=== PATIENT | male | born 1985 | race African-American/Black ===

== ENCOUNTER 2019-12-15 20:16 | Inpatient (IN) | payer SELFPAY ==
[2019-12-15] MEDS ORDERED: Sodium Chloride 0.9% 10 ML Syringe FLUSH PRN (21:19)
[2019-12-15] MEDS ORDERED: Sodium Chloride 0.9% 1,000 ML IV ONE (21:19)
[2019-12-15] MEDS ORDERED: Metoclopramide 10 MG/2 ML SDV IVPUSH ONE (21:19)
[2019-12-15] MEDS: LORazepam 2 MG/ML SDV IVPUSH ONE ×2 (21:26→22:28)
--- NOTE | 2019-12-15 21:26 | EDM.PDOC ---
ED HPI GENERAL MEDICAL PROBLEM - General Chief Complaint: Drug or Alcohol Abuse Stated Complaint: [facility] Time Seen by Provider: 12/15/19 21:26 - History of Present Illness INITIAL COMMENTS - FREE TEXT/NARRATIVE: 34-year-old male presents the emergency room after having a seizure. Patient is a chronic alcoholic and is trying to decrease his alcohol intake. The patient was homeless and recently came here from [place].. His goal is to be near his kids and to quit drinking. His last drink was earlier today he had a shot this morning and a 24 ounce beer throughout the afternoon in an attempt to slow down. His drinking over the last few weeks has been fairly light for him. The patient hit the floor at his ex-'s house and she ran up there and he had a generalized tonic-clonic seizure that lasted approximately 5 minutes she laid him over on his side this did stop 911 was summoned he was completely out of it for about 10 minutes after this no loss of bowel or bladder control and then he slowly started to wake up. His past medical history is otherwise unremarkable. - Related Data Allergies Allergy/AdvReac Type Severity Reaction Status Date / Time No Known Allergies Allergy Verified 12/15/19 20:26 Home Meds: Home Meds . [No Known Home Meds] 12/15/19 [History] Past Medical History HEENT History: Reports: None Cardiovascular History: Reports: None Respiratory History: Reports: None Gastrointestinal History: Reports: None Genitourinary History: Reports: None Musculoskeletal History: Reports: None Neurological History: Reports: Seizure Psychiatric History: Reports: Addiction Endocrine/Metabolic History: Reports: None Hematologic History: Reports: None Immunologic History: Reports: None Oncologic (Cancer) History: Reports: None Dermatologic History: Reports: None - Infectious Disease History Infectious Disease History: Reports: None Social & Family History - Tobacco Use Smoking Status *Q: Current Every Day Smoker Years of Tobacco use: 14 Packs/Tins Daily: 0.5 - Caffeine Use Caffeine Use: Reports: Soda - Recreational Drug Use Recreational Drug Use: No ED ROS GENERAL - Review of Systems Review Of Systems: See Below Constitutional: Reports: No Symptoms HEENT: Reports: No Symptoms, Other (He did bite his tongue during the seizure) Respiratory: Reports: No Symptoms Cardiovascular: Reports: No Symptoms GI/Abdominal: Reports: Nausea. Denies: Abdominal Pain, Vomiting Musculoskeletal: Reports: No Symptoms Skin: Reports: No Symptoms Neurological: Reports: Headache, Seizure, Tremors Psychiatric: Reports: No Symptoms Hematologic/Lymphatic: Reports: No Symptoms Immunologic: Reports: No Symptoms ED EXAM, GENERAL - Physical Exam Exam: See Below Exam Limited By: No Limitations General Appearance: Alert, No Apparent Distress, Other (He was sleeping but woke up and answer questions appropriately) Ears: Normal External Exam, Normal Canal, Hearing Grossly Normal, Normal TMs Nose: Normal Inspection, Normal Mucosa, No Blood Throat/Mouth: Normal Inspection, Normal Lips, Normal Gums, Normal Oropharynx, Normal Voice, No Airway Compromise, Other (Bite mondragon on the tongue) Head: Atraumatic, Normocephalic Respiratory/Chest: No Respiratory Distress, Lungs Clear, Normal Breath Sounds Cardiovascular: Regular Rate, Rhythm, No Edema, No Murmur GI/Abdominal: Normal Bowel Sounds, Soft, Non-Tender Back Exam: Normal Inspection. No: CVA Tenderness (L), CVA Tenderness (R) Extremities: No Pedal Edema Neurological: Alert, Oriented Psychiatric: Normal Affect, Other (States in no uncertain terms he wants to quit drinking) Lymphatic: No Adenopathy Course - Vital Signs Last Recorded V/S: Last Vital Signs Temp 37.5 C 12/15/19 20:21 Pulse 108 H 12/15/19 20:21 Resp 16 12/15/19 20:21 BP 152/119 H 12/15/19 20:21 Pulse Ox 96 12/15/19 20:21 - Orders/Labs/Meds Orders: Active Orders 24 hr Category Date Time Status Oxygen Therapy [RC] PRN Care 12/15/19 23:00 Active Peripheral IV Care [RC] . DIRECTED Care 12/15/19 21:19 Active Up With Assistance [RC] ASDIRECTED Care 12/15/19 23:00 Active VTE/DVT Education [RC] PER UNIT ROUTINE Care 12/15/19 23:00 Active Vital Signs [RC] Q4H Care 12/15/19 23:00 Active Consult to Case Management/Feeder Associate [CONS] Cons 12/15/19 23:00 Active Routine Clear Liquid Diet [DIET] Diet 12/16/19 Breakfast Active Head wo Cont [CT] Stat Exams 12/15/19 22:31 Ordered CBC WITH AUTO DIFF [HEME] AM Lab 12/16/19 05:11 Ordered COMPREHENSIVE METABOLIC PN,CMP [CHEM] AM Lab 12/16/19 05:11 Ordered CORONAVIRUS COVID-19 JEREMI [MOLEC] Stat Lab 12/15/19 22:40 Ordered FOLIC ACID [CHEM] AM Lab 12/16/19 05:11 Ordered MAGNESIUM [CHEM] AM Lab 12/16/19 05:11 Ordered PHOSPHORUS [CHEM] AM Lab 12/16/19 05:11 Ordered VITAMIN B12 [CHEM] AM Lab 12/16/19 05:11 Ordered Folic Acid Med 12/16/19 09:00 Active 1 mg PO DAILY LORazepam [Ativan] Med 12/15/19 23:00 Active 1 - 3 mg IV Q30M PRN Magnesium Sulfate/Water [Magnesium Sulfate in Water Med 12/15/19 22:19 Active Premix] 2 gm Premix Bag 1 bag IV ONETIME Magnesium Sulfate/Water [Magnesium Sulfate in Water Med 12/15/19 23:05 Ordered Premix] 4 gm Premix Bag 1 bag IV ONETIME Ondansetron [Zofran] Med 12/15/19 23:00 Active 4 mg IV Q4H PRN Pantoprazole [ProTONIX] Med 12/16/19 06:00 Active 40 mg PO ACBREAKFAST Sodium Chloride 0.9% [Saline Flush] Med 12/15/19 21:19 Active 10 ml FLUSH ASDIRECTED PRN Thiamine [Vitamin B-1] Med 12/16/19 09:00 Active 100 mg IVPUSH DAILY chlordiazePOXIDE [Librium] Med 12/15/19 23:05 Ordered See Protocol PO Q1H PRN levETIRAcetam [Keppra] 1,000 mg Med 12/15/19 23:30 Ordered Sodium Chloride 0.9% [Normal Saline] 100 ml IV ONETIME Peripheral IV Insertion Adult [OM.PC] Routine Oth 12/15/19 21:19 Ordered Resuscitation Status Routine Resus Stat 12/15/19 23:00 Ordered Medication Orders Chlordiazepoxide HCl (Librium) 0 mg PO Q1H PRN; Protocol PRN Reason: Withdrawal Symptoms Folic Acid (Folic Acid) 1 mg PO DAILY RHODA Magnesium Sulfate 2 gm/ Premix 50 mls @ 25 mls/hr IV ONETIME ONE Stop: 12/16/19 00:18 Last Admin: 12/15/19 22:26 Dose: 25 mls/hr Documented by: HELEN Magnesium Sulfate 4 gm/ Premix 50 mls @ 12.5 mls/hr IV ONETIME ONE Stop: 12/16/19 03:04 Lorazepam (Ativan) 1 - 3 mg IV Q30M PRN; Protocol PRN Reason: Nausea/Vomiting Ondansetron HCl (Zofran) 4 mg IV Q4H PRN PRN Reason: Nausea/Vomiting Pantoprazole Sodium (Protonix) 40 mg PO ACBREAKFAST RHODA Sodium Chloride (Saline Flush) 10 ml FLUSH ASDIRECTED PRN PRN Reason: Keep Vein Open Last Admin: 12/15/19 21:26 Dose: 10 ml Documented by: HELEN Thiamine HCl (Vitamin B-1) 100 mg IVPUSH DAILY RHODA Labs: Laboratory Tests 12/15/19 12/15/19 12/15/19 Range/Units 20:23 20:23 22:44 WBC 8.60 (4.23-9.07) K/mm3 RBC 4.03 L (4.63-6.08) M/mm3 Hgb 13.5 L (13.7-17.5) gm/dl Hct 40.4 (40.1-51.0) % MCV 100.2 H (79.0-92.2) fl MCH 33.5 H (25.7-32.2) pg MCHC 33.4 (32.2-35.5) g/dl RDW Std Deviation 48.4 H (35.1-43.9) fL Plt Count 210 (163-337) K/mm3 MPV 10.6 (9.4-12.3) fl Neut % (Auto) 49.3 (34.0-67.9) % Lymph % (Auto) 32.9 (21.8-53.1) % [place] % (Auto) 16.4 H (5.3-12.2) % Eos % (Auto) 1.0 (0.8-7.0) Baso % (Auto) 0.2 (0.1-1.2) % Neut # (Auto) 4.23 (1.78-5.38) K/mm3 Lymph # (Auto) 2.83 (1.32-3.57) K/mm3 [place] # (Auto) 1.41 H (0.30-0.82) K/mm3 Eos # (Auto) 0.09 (0.04-0.54) K/mm3 Baso # (Auto) 0.02 (0.01-0.08) K/mm3 Manual Slide Review Abnormal smear Sodium 136 (136-145) mEq/L Potassium 3.0 L (3.5-5.1) mEq/L Chloride 96 L (98-107) mEq/L Carbon Dioxide 25 (21-32) mEq/L Anion Gap 18.0 H (5-15) BUN 4 L (7-18) mg/dL Creatinine 0.9 (0.7-1.3) mg/dL Est Cr Clr Drug Dosing 135.73 mL/min Estimated GFR (MDRD) > 60 (>60) mL/min BUN/Creatinine Ratio 4.4 L (14-18) Glucose 65 L (74-106) mg/dL Calcium 9.7 (8.5-10.1) mg/dL Magnesium 1.3 L (1.8-2.4) mg/dl Total Bilirubin 0.4 (0.2-1.0) mg/dL AST 31 (15-37) U/L ALT 31 (16-63) U/L Alkaline Phosphatase 98 (46-116) U/L Total Protein 8.4 H (6.4-8.2) g/dl Albumin 3.8 (3.4-5.0) g/dl Globulin 4.6 gm/dL Albumin/Globulin Ratio 0.8 L (1-2) Urine Color Yellow (Yellow) Urine Appearance Clear (Clear) Urine pH 7.5 (5.0-8.0) Ur Specific [place] 1.015 (1.005-1.030) Urine Protein Trace H (Negative) Urine Glucose (UA) Negative (Negative) Urine Ketones Negative (Negative) Urine Occult Blood Trace-intact H (Negative) Urine Nitrite Negative (Negative) Urine Bilirubin Negative (Negative) Urine Urobilinogen 1.0 (0.2-1.0) Ur Leukocyte Esterase Negative (Negative) Urine RBC 5-10 H (0-5) /hpf Urine WBC 0-5 (0-5) /hpf Ur Squamous Epith Cells 0-5 (0-5) /hpf Urine Bacteria Few (FEW) /hpf Urine Mucus Few (FEW) /hpf Urine Opiates Screen (FGDVLO=960) Ur Buprenorphine Scrn (CUTOFF=10) Ur Oxycodone Screen (AKE7TQ=414) Urine Methadone Screen (NND7AO=664) Ur Propoxyphene Screen (RUODXI=366) Ur Barbiturates Screen (SGNNLG=993) Ur Tricyclics Screen (ABTQFO=741) Ur Phencyclidine Scrn (CUTOFF=25) Ur Amphetamine Screen (LNKZHA=110) U Methamphetamines Scrn (UWQSIZ=122) U Benzodiazepines Scrn (YBRMEU=731) U Cocaine Metab Screen (QJBXID=231) U Marijuana (THC) Screen (CUTOFF=50) Ethyl Alcohol 0.01 (0.00) gm% 12/15/19 Range/Units 22:44 WBC (4.23-9.07) K/mm3 RBC (4.63-6.08) M/mm3 Hgb (13.7-17.5) gm/dl Hct (40.1-51.0) % MCV (79.0-92.2) fl MCH (25.7-32.2) pg MCHC (32.2-35.5) g/dl RDW Std Deviation (35.1-43.9) fL Plt Count (163-337) K/mm3 MPV (9.4-12.3) fl Neut % (Auto) (34.0-67.9) % Lymph % (Auto) (21.8-53.1) % [place] % (Auto) (5.3-12.2) % Eos % (Auto) (0.8-7.0) Baso % (Auto) (0.1-1.2) % Neut # (Auto) (1.78-5.38) K/mm3 Lymph # (Auto) (1.32-3.57) K/mm3 [place] # (Auto) (0.30-0.82) K/mm3 Eos # (Auto) (0.04-0.54) K/mm3 Baso # (Auto) (0.01-0.08) K/mm3 Manual Slide Review Sodium (136-145) mEq/L Potassium (3.5-5.1) mEq/L Chloride (98-107) mEq/L Carbon Dioxide (21-32) mEq/L Anion Gap (5-15) BUN (7-18) mg/dL Creatinine (0.7-1.3) mg/dL Est Cr Clr Drug Dosing mL/min Estimated GFR (MDRD) (>60) mL/min BUN/Creatinine Ratio (14-18) Glucose (74-106) mg/dL Calcium (8.5-10.1) mg/dL Magnesium (1.8-2.4) mg/dl Total Bilirubin (0.2-1.0) mg/dL AST (15-37) U/L ALT (16-63) U/L Alkaline Phosphatase (46-116) U/L Total Protein (6.4-8.2) g/dl Albumin (3.4-5.0) g/dl Globulin gm/dL Albumin/Globulin Ratio (1-2) Urine Color (Yellow) Urine Appearance (Clear) Urine pH (5.0-8.0) Ur Specific [place] (1.005-1.030) Urine Protein (Negative) Urine Glucose (UA) (Negative) Urine Ketones (Negative) Urine Occult Blood (Negative) Urine Nitrite (Negative) Urine Bilirubin (Negative) Urine Urobilinogen (0.2-1.0) Ur Leukocyte Esterase (Negative) Urine RBC (0-5) /hpf Urine WBC (0-5) /hpf Ur Squamous Epith Cells (0-5) /hpf Urine Bacteria (FEW) /hpf Urine Mucus (FEW) /hpf Urine Opiates Screen Negative (PRYVGK=952) Ur Buprenorphine Scrn Negative (CUTOFF=10) Ur Oxycodone Screen Negative (RGA3MP=243) Urine Methadone Screen Negative (ZLJ5PQ=634) Ur Propoxyphene Screen Negative (DOEDQH=443) Ur Barbiturates Screen Negative (RWUKQT=818) Ur Tricyclics Screen Negative (TIXNIQ=471) Ur Phencyclidine Scrn Negative (CUTOFF=25) Ur Amphetamine Screen Negative (AZJBWM=895) U Methamphetamines Scrn Negative (WAPJWR=783) U Benzodiazepines Scrn Negative (FPNAWE=469) U Cocaine Metab Screen Negative (UFPCXF=474) U Marijuana (THC) Screen Negative (CUTOFF=50) Ethyl Alcohol (0.00) gm% Meds: Medications Generic Name Dose Route Start Last Admin Trade Name Freq PRN Reason Stop Dose Admin Chlordiazepoxide HCl 0 mg 12/15/19 23:05 Librium PO Q1H PRN Withdrawal Symptoms Protocol Folic Acid 1 mg 12/16/19 09:00 Folic Acid PO DAILY RHODA Magnesium Sulfate 2 gm/ Premix 50 mls @ 25 mls/hr 08/11/20 22:19 12/15/19 22:26 IV 12/16/19 00:18 25 mls/hr ONETIME ONE Administration Magnesium Sulfate 4 gm/ Premix 50 mls @ 12.5 mls/hr 12/15/19 23:05 IV 12/16/19 03:04 ONETIME ONE Lorazepam 1 - 3 mg 12/15/19 23:00 Ativan IV Q30M PRN Nausea/Vomiting Protocol Ondansetron HCl 4 mg 12/15/19 23:00 Zofran IV Q4H PRN Nausea/Vomiting Pantoprazole Sodium 40 mg 12/16/19 06:00 Protonix PO ACBREAKFAST RHODA Sodium Chloride 10 ml 12/15/19 21:19 12/15/19 21:26 Saline Flush FLUSH 10 ml ASDIRECTED PRN Administration Keep Vein Open Thiamine HCl 100 mg 12/16/19 09:00 Vitamin B-1 IVPUSH DAILY RHODA Discontinued Medications Generic Name Dose Route Start Last Admin Trade Name Freq PRN Reason Stop Dose Admin Chlordiazepoxide HCl 50 mg 12/15/19 22:49 12/15/19 23:26 Librium PO 12/15/19 22:50 50 mg ONETIME ONE Administration Sodium Chloride 1,000 mls @ 999 mls/hr 12/15/19 21:19 12/15/19 21:25 Normal Saline IV 12/15/19 22:19 999 mls/hr ONETIME ONE Administration Thiamine HCl 100 mg/ Sodium 101 mls @ 202 mls/hr 12/15/19 22:43 12/15/19 23:28 Chloride IV 12/15/19 22:44 202 mls/hr ONETIME ONE Administration Lorazepam 1 mg 12/15/19 21:19 12/15/19 22:28 Ativan IVPUSH 12/15/19 21:20 Not Given ONETIME ONE Lorazepam 2 mg 12/15/19 22:27 12/15/19 21:19 Ativan IVPUSH 12/15/19 22:28 2 mg ONETIME ONE Administration Metoclopramide HCl 10 mg 12/15/19 21:19 12/15/19 21:26 Reglan IVPUSH 12/15/19 21:20 10 mg ONETIME ONE Administration Pantoprazole Sodium 40 mg 12/15/19 23:07 12/15/19 23:28 Protonix Iv IVPUSH 12/15/19 23:08 40 mg ONETIME ONE Administration Potassium Chloride 40 meq 12/15/19 22:31 12/15/19 22:44 Klor-Con M20 PO 12/15/19 22:32 40 meq ONETIME ONE Administration - Re-Assessments/Exams Free Text/Narrative Re-Assessment/Exam: 12/15/19 22:51 Patient will be checked for COVID and will obtain a head CT his potassium is low he will receive some oral potassium for now his magnesium is low he is receiving IV magnesium. Case discussed with Dr. Alfaro the patient will come in for detox. 12/15/19 23:31 Discussed the situation again with Dr. Alfaro, he would like for me to put an order in for Keppra this has been done. Departure - Departure Time of Disposition: 22:51 Disposition: Admitted As Inpatient 67 Clinical Impression: Alcohol withdrawal syndrome - Discharge Information Referrals: PCP,None [Primary Care Provider] - Sepsis Event Note (ED) - Evaluation Sepsis Screening Result: No Definite Risk - Focused Exam Vital Signs: Vital Signs Temp Pulse Resp BP Pulse Ox 12/15/19 20:21 37.5 C 108 H 16 152/119 H 96 - My Orders Last 24 Hours: My Active Orders 12/15/19 22:19 Magnesium Sulfate/Water [Magnesium Sulfate in Water Premix] 2 gm Premix Bag 1 bag IV ONETIME 12/15/19 22:31 Head wo Cont [CT] Stat 12/15/19 22:40 CORONAVIRUS COVID-19 JEREMI [MOLEC] Stat 12/15/19 23:30 levETIRAcetam [Keppra] 1,000 mg Sodium Chloride 0.9% [Normal Saline] 100 ml IV ONETIME - Assessment/Plan Last 24 Hours: My Active Orders 12/15/19 22:19 Magnesium Sulfate/Water [Magnesium Sulfate in Water Premix] 2 gm Premix Bag 1 bag IV ONETIME 12/15/19 22:31 Head wo Cont [CT] Stat 12/15/19 22:40 CORONAVIRUS COVID-19 JEREMI [MOLEC] Stat 12/15/19 23:30 levETIRAcetam [Keppra] 1,000 mg Sodium Chloride 0.9% [Normal Saline] 100 ml IV ONETIME
[2019-12-15] MEDS ORDERED: Magnesium Sulfate/Water 2 GM in Premix Bag 1 BAG IV ONE (22:19)
[2019-12-15] MEDS ORDERED: LORazepam 2 MG/ML SDV IVPUSH ONE (22:27)
[2019-12-15] MEDS ORDERED: Potassium Chloride 20 MEQ Tab.ER PO ONE (22:31)
[2019-12-15] MEDS ORDERED: Thiamine 100 MG in Sodium Chloride 0.9% 100 ML IV ONE (22:43)
[2019-12-15] MEDS ORDERED: chlordiazePOXIDE 25 MG Cap PO ONE (22:49)
[2019-12-15] MEDS ORDERED: LORazepam 2 MG/ML SDV IV PRN (23:00)
[2019-12-15] MEDS ORDERED: Ondansetron 4 MG/2 ML SDV IV PRN (23:00)
[2019-12-15] MEDS ORDERED: chlordiazePOXIDE 25 MG Cap PO PRN (23:05)
[2019-12-15] MEDS ORDERED: Pantoprazole 40 MG Vial IVPUSH ONE (23:07)
[2019-12-15] MEDS ORDERED: levETIRAcetam 1,000 MG in Sodium Chloride 0.9% 100 ML IV ONE (23:30)
--- NOTE | 2019-12-15 23:49 | PCM.HP.2 ---
H&P History of Present Illness - General Date of Service: 12/15/19 Admit Problem/Dx: Admission Diagnosis/Problem Admission Diagnosis/Problem Seizure - History of Present Illness Initial Comments - Free Text/Narative: 34-year-old male presents emergency department with chief complaint of seizure. Patient has a history of alcoholism and since september has had multiple seizures when he decreases his alcohol intake. He recently moved from [place] where he was homeless to be closer to his children and their mother. Patient has been drinking approximately 7 or 50 mL of vodka daily plus as much beer as he can get his hands on. Yesterday morning he did have 1 shot of vodka and a 24 ounce beer and then attempt to decrease his intake. Patient subsequently had a seizure that lasted for approximately 5 minutes and EMS was called. He was postictal for approximately 10 minutes but no loss of bowel or bladder control. In the emergency department patient had a CT scan of the head which showed nothing acute. He was found to have some hyponatremia with potassium of 3.0 and hypomagnesemia magnesium 1.3. Anion gap was 18. Blood alcohol was 0.01 g% and his urine drug screen was negative. He was given a total of 3 mg of Ativan and Librium 50 mg in the emergency department. Started on potassium chloride 40 mEq and Protonix. Because of his recurrent history of seizures we loaded him with 1 g of Keppra in the emergency department and then transferred him to the ICU. - Related Data Allergies/Adverse Reactions: Allergies Allergy/AdvReac Type Severity Reaction Status Date / Time No Known Allergies Allergy Verified 12/16/19 01:42 Home Medications: Home Meds . [No Known Home Meds] 12/15/19 [History] Past Medical History HEENT History: Reports: None Cardiovascular History: Reports: None Respiratory History: Reports: None Gastrointestinal History: Reports: None Genitourinary History: Reports: None Musculoskeletal History: Reports: None Neurological History: Reports: Seizure Psychiatric History: Reports: Addiction Endocrine/Metabolic History: Reports: None Hematologic History: Reports: None Immunologic History: Reports: None Oncologic (Cancer) History: Reports: None Dermatologic History: Reports: None - Infectious Disease History Infectious Disease History: Reports: None Social & Family History - Tobacco Use Smoking Status *Q: Current Every Day Smoker Years of Tobacco use: 14 Packs/Tins Daily: 0.5 - Caffeine Use Caffeine Use: Reports: Soda - Recreational Drug Use Recreational Drug Use: No H&P Review of Systems - Review of Systems: Review Of Systems: Comprehensive ROS is negative, except as noted in HPI. Exam - Exam Exam: See Below - Vital Signs Vital Signs: Last Vital Signs Temp 99.5 F 12/15/19 20:21 Pulse 108 H 12/15/19 20:21 Resp 16 12/15/19 20:21 BP 152/119 H 12/15/19 20:21 Pulse Ox 96 12/15/19 20:21 Weight: 88.451 kg - Exam General: Oriented, Sedated HEENT: Conjunctiva Clear, Hearing Intact, Mucosa Moist & [place] Neck: Supple, Trachea Midline, 2 Lungs: Clear to Auscultation, Normal Respiratory Effort Cardiovascular: Regular Rate, Regular Rhythm GI/Abdominal Exam: Normal Bowel Sounds, Soft, Non-Tender, No Organomegaly, No Distention, No Abnormal Bruit, No Mass Extremities: Normal Inspection, Normal Range of Motion, Non-Tender, No Pedal Edema, Normal Capillary Refill Skin: Warm Neurological: Cranial Nerves Intact Neuro Extensive - Mental Status: Slow Response to Commands Psychiatric: Withdrawal Symptoms - Patient Data Lab Results Last 24 hrs: Laboratory Results - last 24 hr 12/15/19 12/15/19 12/15/19 Range/Units 20:23 20:23 22:44 WBC 8.60 (4.23-9.07) K/mm3 RBC 4.03 L (4.63-6.08) M/mm3 Hgb 13.5 L (13.7-17.5) gm/dl Hct 40.4 (40.1-51.0) % MCV 100.2 H (79.0-92.2) fl MCH 33.5 H (25.7-32.2) pg MCHC 33.4 (32.2-35.5) g/dl RDW Std Deviation 48.4 H (35.1-43.9) fL Plt Count 210 (163-337) K/mm3 MPV 10.6 (9.4-12.3) fl Neut % (Auto) 49.3 (34.0-67.9) % Lymph % (Auto) 32.9 (21.8-53.1) % [place] % (Auto) 16.4 H (5.3-12.2) % Eos % (Auto) 1.0 (0.8-7.0) Baso % (Auto) 0.2 (0.1-1.2) % Neut # (Auto) 4.23 (1.78-5.38) K/mm3 Lymph # (Auto) 2.83 (1.32-3.57) K/mm3 [place] # (Auto) 1.41 H (0.30-0.82) K/mm3 Eos # (Auto) 0.09 (0.04-0.54) K/mm3 Baso # (Auto) 0.02 (0.01-0.08) K/mm3 Manual Slide Review Abnormal smear Sodium 136 (136-145) mEq/L Potassium 3.0 L (3.5-5.1) mEq/L Chloride 96 L (98-107) mEq/L Carbon Dioxide 25 (21-32) mEq/L Anion Gap 18.0 H (5-15) BUN 4 L (7-18) mg/dL Creatinine 0.9 (0.7-1.3) mg/dL Est Cr Clr Drug Dosing 135.73 mL/min Estimated GFR (MDRD) > 60 (>60) mL/min BUN/Creatinine Ratio 4.4 L (14-18) Glucose 65 L (74-106) mg/dL Calcium 9.7 (8.5-10.1) mg/dL Magnesium 1.3 L (1.8-2.4) mg/dl Total Bilirubin 0.4 (0.2-1.0) mg/dL AST 31 (15-37) U/L ALT 31 (16-63) U/L Alkaline Phosphatase 98 (46-116) U/L Total Protein 8.4 H (6.4-8.2) g/dl Albumin 3.8 (3.4-5.0) g/dl Globulin 4.6 gm/dL Albumin/Globulin Ratio 0.8 L (1-2) Urine Color Yellow (Yellow) Urine Appearance Clear (Clear) Urine pH 7.5 (5.0-8.0) Ur Specific [place] 1.015 (1.005-1.030) Urine Protein Trace H (Negative) Urine Glucose (UA) Negative (Negative) Urine Ketones Negative (Negative) Urine Occult Blood Trace-intact H (Negative) Urine Nitrite Negative (Negative) Urine Bilirubin Negative (Negative) Urine Urobilinogen 1.0 (0.2-1.0) Ur Leukocyte Esterase Negative (Negative) Urine RBC 5-10 H (0-5) /hpf Urine WBC 0-5 (0-5) /hpf Ur Squamous Epith Cells 0-5 (0-5) /hpf Urine Bacteria Few (FEW) /hpf Urine Mucus Few (FEW) /hpf Urine Opiates Screen (MHMQNH=712) Ur Buprenorphine Scrn (CUTOFF=10) Ur Oxycodone Screen (RPS7NG=303) Urine Methadone Screen (UUT1RS=468) Ur Propoxyphene Screen (UXOQDN=379) Ur Barbiturates Screen (DAUFIO=959) Ur Tricyclics Screen (PWALCS=331) Ur Phencyclidine Scrn (CUTOFF=25) Ur Amphetamine Screen (ZMLXWP=114) U Methamphetamines Scrn (IZTRHL=675) U Benzodiazepines Scrn (KSJNXQ=648) U Cocaine Metab Screen (BOTZWY=163) U Marijuana (THC) Screen (CUTOFF=50) Ethyl Alcohol 0.01 (0.00) gm% 12/15/19 Range/Units 22:44 WBC (4.23-9.07) K/mm3 RBC (4.63-6.08) M/mm3 Hgb (13.7-17.5) gm/dl Hct (40.1-51.0) % MCV (79.0-92.2) fl MCH (25.7-32.2) pg MCHC (32.2-35.5) g/dl RDW Std Deviation (35.1-43.9) fL Plt Count (163-337) K/mm3 MPV (9.4-12.3) fl Neut % (Auto) (34.0-67.9) % Lymph % (Auto) (21.8-53.1) % [place] % (Auto) (5.3-12.2) % Eos % (Auto) (0.8-7.0) Baso % (Auto) (0.1-1.2) % Neut # (Auto) (1.78-5.38) K/mm3 Lymph # (Auto) (1.32-3.57) K/mm3 [place] # (Auto) (0.30-0.82) K/mm3 Eos # (Auto) (0.04-0.54) K/mm3 Baso # (Auto) (0.01-0.08) K/mm3 Manual Slide Review Sodium (136-145) mEq/L Potassium (3.5-5.1) mEq/L Chloride (98-107) mEq/L Carbon Dioxide (21-32) mEq/L Anion Gap (5-15) BUN (7-18) mg/dL Creatinine (0.7-1.3) mg/dL Est Cr Clr Drug Dosing mL/min Estimated GFR (MDRD) (>60) mL/min BUN/Creatinine Ratio (14-18) Glucose (74-106) mg/dL Calcium (8.5-10.1) mg/dL Magnesium (1.8-2.4) mg/dl Total Bilirubin (0.2-1.0) mg/dL AST (15-37) U/L ALT (16-63) U/L Alkaline Phosphatase (46-116) U/L Total Protein (6.4-8.2) g/dl Albumin (3.4-5.0) g/dl Globulin gm/dL Albumin/Globulin Ratio (1-2) Urine Color (Yellow) Urine Appearance (Clear) Urine pH (5.0-8.0) Ur Specific [place] (1.005-1.030) Urine Protein (Negative) Urine Glucose (UA) (Negative) Urine Ketones (Negative) Urine Occult Blood (Negative) Urine Nitrite (Negative) Urine Bilirubin (Negative) Urine Urobilinogen (0.2-1.0) Ur Leukocyte Esterase (Negative) Urine RBC (0-5) /hpf Urine WBC (0-5) /hpf Ur Squamous Epith Cells (0-5) /hpf Urine Bacteria (FEW) /hpf Urine Mucus (FEW) /hpf Urine Opiates Screen Negative (BXCDKI=730) Ur Buprenorphine Scrn Negative (CUTOFF=10) Ur Oxycodone Screen Negative (PIY7OI=216) Urine Methadone Screen Negative (AFD0FZ=707) Ur Propoxyphene Screen Negative (NNRIRV=038) Ur Barbiturates Screen Negative (TPIJZB=398) Ur Tricyclics Screen Negative (SWTQVX=624) Ur Phencyclidine Scrn Negative (CUTOFF=25) Ur Amphetamine Screen Negative (HZTVEQ=893) U Methamphetamines Scrn Negative (XVLMQJ=417) U Benzodiazepines Scrn Negative (RFYOIE=061) U Cocaine Metab Screen Negative (FZBJNK=705) U Marijuana (THC) Screen Negative (CUTOFF=50) Ethyl Alcohol (0.00) gm% Result Diagrams: 12/16/19 06:19 12/16/19 06:19 Sepsis Event Note - Evaluation Sepsis Screening Result: No Definite Risk - Focused Exam Vital Signs: Vital Signs Temp Pulse Resp BP Pulse Ox 12/15/19 20:21 99.5 F 108 H 16 152/119 H 96 - Problem List (1) Hypokalemia SNOMED Code(s): 06862897 ICD Code: E87.6 - HYPOKALEMIA Status: Acute Current Visit: Yes (2) Hypomagnesemia SNOMED Code(s): 604962735 ICD Code: E83.42 - HYPOMAGNESEMIA Status: Acute Current Visit: Yes (3) Alcohol withdrawal seizure SNOMED Code(s): 383710785 ICD Code: F10.239 - ALCOHOL DEPENDENCE WITH WITHDRAWAL, UNSPECIFIED; R56.9 - UNSPECIFIED CONVULSIONS Status: Acute Current Visit: Yes (4) Alcohol withdrawal syndrome SNOMED Code(s): 484775999 ICD Code: F10.239 - ALCOHOL DEPENDENCE WITH WITHDRAWAL, UNSPECIFIED Status: Acute Current Visit: Yes Problem List Initiated/Reviewed/Updated: Yes Orders Last 24hrs: Active Orders 24 hr Category Date Time Status Admission Status [Patient Status] [ADT] Routine ADT 12/15/19 23:44 Active CIWAA Assessment [RC] ASDIRECTED Care 12/15/19 23:43 Active Oxygen Therapy [RC] PRN Care 12/15/19 23:00 Active Peripheral IV Care [RC] . DIRECTED Care 12/15/19 21:19 Active Up With Assistance [RC] ASDIRECTED Care 12/15/19 23:00 Active VTE/DVT Education [RC] PER UNIT ROUTINE Care 12/15/19 23:00 Active Vital Signs [RC] Q4H Care 12/15/19 23:00 Active Consult to Case Management/Computer Systems Support Specialist [CONS] Cons 12/15/19 23:00 Active Routine Clear Liquid Diet [DIET] Diet 12/16/19 Breakfast Active Head wo Cont [CT] Stat Exams 12/15/19 22:31 Ordered CBC WITH AUTO DIFF [HEME] AM Lab 12/16/19 05:11 Ordered COMPREHENSIVE METABOLIC PN,CMP [CHEM] AM Lab 12/16/19 05:11 Ordered CORONAVIRUS COVID-19 JEREMI [MOLEC] Stat Lab 12/15/19 22:40 Ordered CREATINE KINASE,CK [CHEM] AM Lab 12/16/19 05:11 Ordered FOLIC ACID [CHEM] AM Lab 12/16/19 05:11 Ordered MAGNESIUM [CHEM] AM Lab 12/16/19 05:11 Ordered PHOSPHORUS [CHEM] AM Lab 12/16/19 05:11 Ordered VITAMIN B12 [CHEM] AM Lab 12/16/19 05:11 Ordered Folic Acid Med 12/16/19 09:00 Active 1 mg PO DAILY LORazepam [Ativan] Med 12/15/19 23:00 Active 1 - 3 mg IV Q30M PRN Magnesium Sulfate/Water [Magnesium Sulfate in Water Med 12/15/19 22:19 Active Premix] 2 gm Premix Bag 1 bag IV ONETIME Magnesium Sulfate/Water [Magnesium Sulfate in Water Med 12/15/19 23:05 Ordered Premix] 4 gm Premix Bag 1 bag IV ONETIME Ondansetron [Zofran] Med 12/15/19 23:00 Active 4 mg IV Q4H PRN Pantoprazole [ProTONIX] Med 12/16/19 06:00 Active 40 mg PO ACBREAKFAST Sodium Chloride 0.9% [Saline Flush] Med 12/15/19 21:19 Active 10 ml FLUSH ASDIRECTED PRN Thiamine [Vitamin B-1] Med 12/16/19 09:00 Active 100 mg IVPUSH DAILY chlordiazePOXIDE [Librium] Med 12/16/19 03:00 Active See Protocol PO Q1H PRN Peripheral IV Insertion Adult [OM.PC] Routine Oth 12/15/19 21:19 Ordered Resuscitation Status Routine Resus Stat 12/15/19 23:00 Ordered Medication Orders Chlordiazepoxide HCl (Librium) 0 mg PO Q1H PRN; Protocol PRN Reason: Withdrawal Symptoms Folic Acid (Folic Acid) 1 mg PO DAILY [facility] Magnesium Sulfate 2 gm/ Premix 50 mls @ 25 mls/hr IV ONETIME ONE Stop: 12/16/19 00:18 Last Admin: 12/15/19 22:26 Dose: 25 mls/hr Documented by: HELEN Magnesium Sulfate 4 gm/ Premix 50 mls @ 12.5 mls/hr IV ONETIME ONE Stop: 12/16/19 03:04 Lorazepam (Ativan) 1 - 3 mg IV Q30M PRN; Protocol PRN Reason: Nausea/Vomiting Ondansetron HCl (Zofran) 4 mg IV Q4H PRN PRN Reason: Nausea/Vomiting Pantoprazole Sodium (Protonix) 40 mg PO ACBREAKFAST [facility] Sodium Chloride (Saline Flush) 10 ml FLUSH ASDIRECTED PRN PRN Reason: Keep Vein Open Last Admin: 12/15/19 21:26 Dose: 10 ml Documented by: HELEN Thiamine HCl (Vitamin B-1) 100 mg IVPUSH DAILY [facility] Assessment/Plan Comment:: Assessment * Alcohol withdrawal syndrome with history of alcohol withdrawal seizures * Patient develops seizures with just lowering of his alcohol intake increasing his risk for further seizures * 5-minute seizure prior to presentation to the emergency department * Drinks 750 mL of vodka and several beers daily * Thiamine 100 mg given IV in the emergency department * Keppra 1 g IV given in emergency department * Hypokalemia and hypomagnesemia * Potassium 3.0 * Magnesium 1.3 * Potassium 40 mEq given in the emergency department * Magnesium 6 g started in emergency department * Likely secondary to poor oral intake * Elevated anion gap * Anion gap 18 * Likely secondary to hypovolemia and alcoholism * Fluid bolus given in the emergency department Plan * Admit to ICU for close monitoring secondary to history of withdrawal seizures * Seizure precautions * Librium protocol * Follow CIWAA scores * Ativan for elevated CIWA scores PRN * Continue Keppra 500 mg twice daily * Follow electrolytes and renal function * Continue thiamine and start folic acid * D5 normal saline with 20 mEq of potassium per liter or rehydration * Regular diet as tolerated * Case management and community mental health social worker consult * CODE STATUS full code * VTE prophylaxis: Not indicated * Length of stay 2 to 3 days. - Mortality Measure Prognosis:: Good
[2019-12-16] MEDS ORDERED: Magnesium Sulfate/Water 4 GM in Premix Bag 1 BAG IV ONE (00:30)
[2019-12-16] MEDS: D5 1/2 NS w/ 20 mEq/L KCl 1,000 ML IV SCH ×2 (00:43→08:30)
[2019-12-16] MEDS ORDERED: chlordiazePOXIDE 25 MG Cap PO PRN (03:00)
[2019-12-16] MEDS: chlordiazePOXIDE 25 MG Cap PO SCH ×4 (04:01→15:48)
[2019-12-16] MEDS ORDERED: Pantoprazole 40 MG Tab.CR PO SCH (06:00)
[2019-12-16] MEDS ORDERED: Folic Acid 1 MG Tab PO SCH (09:00)
[2019-12-16] MEDS ORDERED: Thiamine 200 MG/2 ML MDV IVPUSH SCH (09:00)
--- NOTE | 2019-12-16 09:58 | CT ---
Head CT Technique: Multiple axial sections through the brain were obtained. Intravenous contrast was not utilized. Comparison: No prior intracranial imaging is available. Findings: Dense calcification is seen along the interhemispheric falx which appears to be chronic. Ventricles along with basal cisterns and sulci over the convexities appear within normal limits for the patient's age. No abnormal parenchymal densities are seen. No evidence of intracranial hemorrhage. No midline shift or mass effect is seen. Visualized mastoid sinuses and paranasal sinuses show nothing acute. No acute calvarial finding is appreciated. Impression: 1. Nothing acute is appreciated on noncontrast head CT study. 2. If etiology for the patient's seizures are not known, MRI could then be considered. Diagnostic code #2 I agree with preliminary report issued by [facility] ([facility] preliminary report dictated on 12/16/19, 1:18 AM Central Daylight Time) Study was dictated in MDT
[2019-12-16] MEDS ORDERED: levETIRAcetam 500 MG Tab PO SCH (10:15)
[2019-12-16] MEDS ORDERED: Nicotine 21 MG/24 Hr Patch TRDERM SCH (12:00)
--- NOTE | 2019-12-16 13:35 | PCM.PN ---
- General Info Date of Service: 12/16/19 Admission Dx/Problem (Free Text): Admission Diagnosis/Problem Admission Diagnosis/Problem Seizure Subjective Update: Patient states he is feeling much better. He has no complaints. His CIWAA scores have been less than 8 and he has not received any as needed Ativan. Functional Status: Reports: Pain Controlled - Review of Systems General: Reports: No Symptoms HEENT: Reports: No Symptoms Pulmonary: Reports: No Symptoms Cardiovascular: Reports: No Symptoms Gastrointestinal: Reports: No Symptoms Musculoskeletal: Reports: No Symptoms - Patient Data Vitals - Most Recent: Last Vital Signs Temp 97 F 12/16/19 12:00 Pulse 78 12/16/19 04:00 Resp 16 12/16/19 12:01 BP 142/113 H 12/16/19 12:01 Pulse Ox 98 12/16/19 12:00 Weight - Most Recent: 88.451 kg I&O - Last 24 Hours: Intake & Output 12/15/19 12/16/19 12/16/19 22:59 06:59 14:59 Intake Total 240 Output Total 900 Balance -660 Lab Results Last 24 Hours: Laboratory Results - last 24 hr 12/15/19 12/15/19 12/15/19 Range/Units 20:23 20:23 22:44 WBC 8.60 (4.23-9.07) K/mm3 RBC 4.03 L (4.63-6.08) M/mm3 Hgb 13.5 L (13.7-17.5) gm/dl Hct 40.4 (40.1-51.0) % MCV 100.2 H (79.0-92.2) fl MCH 33.5 H (25.7-32.2) pg MCHC 33.4 (32.2-35.5) g/dl RDW Std Deviation 48.4 H (35.1-43.9) fL Plt Count 210 (163-337) K/mm3 MPV 10.6 (9.4-12.3) fl Neut % (Auto) 49.3 (34.0-67.9) % Lymph % (Auto) 32.9 (21.8-53.1) % [place] % (Auto) 16.4 H (5.3-12.2) % Eos % (Auto) 1.0 (0.8-7.0) Baso % (Auto) 0.2 (0.1-1.2) % Neut # (Auto) 4.23 (1.78-5.38) K/mm3 Lymph # (Auto) 2.83 (1.32-3.57) K/mm3 [place] # (Auto) 1.41 H (0.30-0.82) K/mm3 Eos # (Auto) 0.09 (0.04-0.54) K/mm3 Baso # (Auto) 0.02 (0.01-0.08) K/mm3 Manual Slide Review Abnormal smear Sodium 136 (136-145) mEq/L Potassium 3.0 L (3.5-5.1) mEq/L Chloride 96 L (98-107) mEq/L Carbon Dioxide 25 (21-32) mEq/L Anion Gap 18.0 H (5-15) BUN 4 L (7-18) mg/dL Creatinine 0.9 (0.7-1.3) mg/dL Est Cr Clr Drug Dosing 135.73 mL/min Estimated GFR (MDRD) > 60 (>60) mL/min BUN/Creatinine Ratio 4.4 L (14-18) Glucose 65 L (74-106) mg/dL Calcium 9.7 (8.5-10.1) mg/dL Phosphorus (2.6-4.7) mg/dL Magnesium 1.3 L (1.8-2.4) mg/dl Total Bilirubin 0.4 (0.2-1.0) mg/dL AST 31 (15-37) U/L ALT 31 (16-63) U/L Alkaline Phosphatase 98 (46-116) U/L Creatine Kinase (39-308) U/L Total Protein 8.4 H (6.4-8.2) g/dl Albumin 3.8 (3.4-5.0) g/dl Globulin 4.6 gm/dL Albumin/Globulin Ratio 0.8 L (1-2) Vitamin B12 (193-986) pg/ml Folate (8.6-58.9) ng/mL Urine Color Yellow (Yellow) Urine Appearance Clear (Clear) Urine pH 7.5 (5.0-8.0) Ur Specific [place] 1.015 (1.005-1.030) Urine Protein Trace H (Negative) Urine Glucose (UA) Negative (Negative) Urine Ketones Negative (Negative) Urine Occult Blood Trace-intact H (Negative) Urine Nitrite Negative (Negative) Urine Bilirubin Negative (Negative) Urine Urobilinogen 1.0 (0.2-1.0) Ur Leukocyte Esterase Negative (Negative) Urine RBC 5-10 H (0-5) /hpf Urine WBC 0-5 (0-5) /hpf Ur Squamous Epith Cells 0-5 (0-5) /hpf Urine Bacteria Few (FEW) /hpf Urine Mucus Few (FEW) /hpf Urine Opiates Screen (IZESWT=862) Ur Buprenorphine Scrn (CUTOFF=10) Ur Oxycodone Screen (HJA8GP=082) Urine Methadone Screen (KLF8EJ=719) Ur Propoxyphene Screen (WIEDSW=901) Ur Barbiturates Screen (CDBQFT=853) Ur Tricyclics Screen (WBXCCZ=593) Ur Phencyclidine Scrn (CUTOFF=25) Ur Amphetamine Screen (DGLMKP=245) U Methamphetamines Scrn (YSFHAS=230) U Benzodiazepines Scrn (IUWZSI=123) U Cocaine Metab Screen (HPYREU=049) U Marijuana (THC) Screen (CUTOFF=50) Ethyl Alcohol 0.01 (0.00) gm% COVID-19 (JEREMI) (NEGATIVE) 12/15/19 12/16/19 12/16/19 Range/Units 22:44 06:19 06:19 WBC 7.03 (4.23-9.07) K/mm3 RBC 3.76 L (4.63-6.08) M/mm3 Hgb 12.4 L (13.7-17.5) gm/dl Hct 37.5 L (40.1-51.0) % MCV 99.7 H (79.0-92.2) fl MCH 33.0 H (25.7-32.2) pg MCHC 33.1 (32.2-35.5) g/dl RDW Std Deviation 47.2 H (35.1-43.9) fL Plt Count 188 (163-337) K/mm3 MPV 10.0 (9.4-12.3) fl Neut % (Auto) 57.9 (34.0-67.9) % Lymph % (Auto) 24.8 (21.8-53.1) % Curry % (Auto) 14.9 H (5.3-12.2) % Eos % (Auto) 2.0 (0.8-7.0) Baso % (Auto) 0.3 (0.1-1.2) % Neut # (Auto) 4.07 (1.78-5.38) K/mm3 Lymph # (Auto) 1.74 (1.32-3.57) K/mm3 [place] # (Auto) 1.05 H (0.30-0.82) K/mm3 Eos # (Auto) 0.14 (0.04-0.54) K/mm3 Baso # (Auto) 0.02 (0.01-0.08) K/mm3 Manual Slide Review Sodium 138 (136-145) mEq/L Potassium 3.7 (3.5-5.1) mEq/L Chloride 102 (98-107) mEq/L Carbon Dioxide 28 (21-32) mEq/L Anion Gap 11.7 (5-15) BUN 4 L (7-18) mg/dL Creatinine 0.8 (0.7-1.3) mg/dL Est Cr Clr Drug Dosing 144.59 mL/min Estimated GFR (MDRD) > 60 (>60) mL/min BUN/Creatinine Ratio 5.0 L (14-18) Glucose 108 H (74-106) mg/dL Calcium 8.5 (8.5-10.1) mg/dL Phosphorus 2.8 (2.6-4.7) mg/dL Magnesium 2.7 H (1.8-2.4) mg/dl Total Bilirubin 0.5 (0.2-1.0) mg/dL AST 32 (15-37) U/L ALT 24 (16-63) U/L Alkaline Phosphatase 83 (46-116) U/L Creatine Kinase 107 (39-308) U/L Total Protein 7.2 (6.4-8.2) g/dl Albumin 3.3 L (3.4-5.0) g/dl Globulin 3.9 gm/dL Albumin/Globulin Ratio 0.9 L (1-2) Vitamin B12 (193-986) pg/ml Folate (8.6-58.9) ng/mL Urine Color (Yellow) Urine Appearance (Clear) Urine pH (5.0-8.0) Ur Specific [place] (1.005-1.030) Urine Protein (Negative) Urine Glucose (UA) (Negative) Urine Ketones (Negative) Urine Occult Blood (Negative) Urine Nitrite (Negative) Urine Bilirubin (Negative) Urine Urobilinogen (0.2-1.0) Ur Leukocyte Esterase (Negative) Urine RBC (0-5) /hpf Urine WBC (0-5) /hpf Ur Squamous Epith Cells (0-5) /hpf Urine Bacteria (FEW) /hpf Urine Mucus (FEW) /hpf Urine Opiates Screen Negative (DTVNHN=474) Ur Buprenorphine Scrn Negative (CUTOFF=10) Ur Oxycodone Screen Negative (NAC2DI=172) Urine Methadone Screen Negative (HAM0TZ=562) Ur Propoxyphene Screen Negative (GDPLFT=397) Ur Barbiturates Screen Negative (NMUKHT=336) Ur Tricyclics Screen Negative (QCJPAG=840) Ur Phencyclidine Scrn Negative (CUTOFF=25) Ur Amphetamine Screen Negative (EFZGDP=084) U Methamphetamines Scrn Negative (TABBGG=322) U Benzodiazepines Scrn Negative (XHZPDQ=807) U Cocaine Metab Screen Negative (NBXITP=779) U Marijuana (THC) Screen Negative (CUTOFF=50) Ethyl Alcohol (0.00) gm% COVID-19 (JEREMI) (NEGATIVE) 12/16/19 12/16/19 Range/Units 06:19 23:58 WBC (4.23-9.07) K/mm3 RBC (4.63-6.08) M/mm3 Hgb (13.7-17.5) gm/dl Hct (40.1-51.0) % MCV (79.0-92.2) fl MCH (25.7-32.2) pg MCHC (32.2-35.5) g/dl RDW Std Deviation (35.1-43.9) fL Plt Count (163-337) K/mm3 MPV (9.4-12.3) fl Neut % (Auto) (34.0-67.9) % Lymph % (Auto) (21.8-53.1) % [place] % (Auto) (5.3-12.2) % Eos % (Auto) (0.8-7.0) Baso % (Auto) (0.1-1.2) % Neut # (Auto) (1.78-5.38) K/mm3 Lymph # (Auto) (1.32-3.57) K/mm3 [place] # (Auto) (0.30-0.82) K/mm3 Eos # (Auto) (0.04-0.54) K/mm3 Baso # (Auto) (0.01-0.08) K/mm3 Manual Slide Review Sodium (136-145) mEq/L Potassium (3.5-5.1) mEq/L Chloride (98-107) mEq/L Carbon Dioxide (21-32) mEq/L Anion Gap (5-15) BUN (7-18) mg/dL Creatinine (0.7-1.3) mg/dL Est Cr Clr Drug Dosing mL/min Estimated GFR (MDRD) (>60) mL/min BUN/Creatinine Ratio (14-18) Glucose (74-106) mg/dL Calcium (8.5-10.1) mg/dL Phosphorus (2.6-4.7) mg/dL Magnesium (1.8-2.4) mg/dl Total Bilirubin (0.2-1.0) mg/dL AST (15-37) U/L ALT (16-63) U/L Alkaline Phosphatase (46-116) U/L Creatine Kinase (39-308) U/L Total Protein (6.4-8.2) g/dl Albumin (3.4-5.0) g/dl Globulin gm/dL Albumin/Globulin Ratio (1-2) Vitamin B12 941 (193-986) pg/ml Folate 9.7 (8.6-58.9) ng/mL Urine Color (Yellow) Urine Appearance (Clear) Urine pH (5.0-8.0) Ur Specific [place] (1.005-1.030) Urine Protein (Negative) Urine Glucose (UA) (Negative) Urine Ketones (Negative) Urine Occult Blood (Negative) Urine Nitrite (Negative) Urine Bilirubin (Negative) Urine Urobilinogen (0.2-1.0) Ur Leukocyte Esterase (Negative) Urine RBC (0-5) /hpf Urine WBC (0-5) /hpf Ur Squamous Epith Cells (0-5) /hpf Urine Bacteria (FEW) /hpf Urine Mucus (FEW) /hpf Urine Opiates Screen (CFQMIQ=788) Ur Buprenorphine Scrn (CUTOFF=10) Ur Oxycodone Screen (DIE3MO=245) Urine Methadone Screen (BYI2IP=804) Ur Propoxyphene Screen (QUDPOA=852) Ur Barbiturates Screen (SMHQDA=029) Ur Tricyclics Screen (ZJZVKO=310) Ur Phencyclidine Scrn (CUTOFF=25) Ur Amphetamine Screen (RRBDQP=270) U Methamphetamines Scrn (GZIOYG=084) U Benzodiazepines Scrn (PIFKQO=238) U Cocaine Metab Screen (SJWHXN=390) U Marijuana (THC) Screen (CUTOFF=50) Ethyl Alcohol (0.00) gm% COVID-19 (JEREMI) Negative (NEGATIVE) Med Orders - Current: Current Medications Chlordiazepoxide HCl (Librium) 50 mg PO Q4H [facility] Stop: 12/16/19 20:01 Last Admin: 12/16/19 11:02 Dose: 50 mg Documented by: Chlordiazepoxide HCl (Librium) 50 mg PO Q6H [facility] Stop: 12/17/19 20:01 Chlordiazepoxide HCl (Librium) 25 mg PO Q4H [facility] Stop: 12/18/19 20:01 Chlordiazepoxide HCl (Librium) 25 mg PO Q6H [facility] Stop: 12/19/19 20:01 Folic Acid (Folic Acid) 1 mg PO DAILY [facility] Last Admin: 12/16/19 08:30 Dose: 1 mg Documented by: Potassium Chloride/Dextrose/Sod Cl (D5 1/2 Ns W/ 20 Meq/L Kcl) 1,000 mls @ 125 mls/hr IV ASDIRECTED [facility] Last Admin: 12/16/19 08:30 Dose: 125 mls/hr Documented by: Levetiracetam (Keppra) 500 mg PO BID [facility] Last Admin: 12/16/19 11:02 Dose: 500 mg Documented by: Lorazepam (Ativan) 1 - 3 mg IV Q30M PRN; Protocol PRN Reason: Nausea/Vomiting Miscellaneous Information (Remove Patch) 1 ea TRDERM Q24H [facility] Nicotine (Habitrol) 21 mg TRDERM Q24H [facility] Last Admin: 12/16/19 11:17 Dose: 21 mg Documented by: Ondansetron HCl (Zofran) 4 mg IV Q4H PRN PRN Reason: Nausea/Vomiting Pantoprazole Sodium (Protonix) 40 mg PO ACBREAKFAST [facility] Last Admin: 12/16/19 05:23 Dose: 40 mg Documented by: Sodium Chloride (Saline Flush) 10 ml FLUSH ASDIRECTED PRN PRN Reason: Keep Vein Open Last Admin: 12/15/19 21:26 Dose: 10 ml Documented by: Thiamine HCl (Vitamin B-1) 100 mg IVPUSH DAILY [facility] Last Admin: 12/16/19 08:30 Dose: 100 mg Documented by: Discontinued Medications Chlordiazepoxide HCl (Librium) 50 mg PO ONETIME ONE Stop: 12/15/19 22:50 Last Admin: 12/15/19 23:26 Dose: 50 mg Documented by: Chlordiazepoxide HCl (Librium) 0 mg PO Q1H PRN; Protocol PRN Reason: Withdrawal Symptoms Sodium Chloride (Normal Saline) 1,000 mls @ 999 mls/hr IV ONETIME ONE Stop: 12/15/19 22:19 Last Admin: 12/15/19 21:25 Dose: 999 mls/hr Documented by: Magnesium Sulfate 2 gm/ Premix 50 mls @ 25 mls/hr IV ONETIME ONE Stop: 12/16/19 00:18 Last Admin: 12/15/19 22:26 Dose: 25 mls/hr Documented by: Thiamine HCl 100 mg/ Sodium (Chloride) 101 mls @ 202 mls/hr IV ONETIME ONE Stop: 12/15/19 22:44 Last Admin: 12/15/19 23:28 Dose: 202 mls/hr Documented by: Magnesium Sulfate 4 gm/ Premix 50 mls @ 12.5 mls/hr IV ONETIME ONE Stop: 12/16/19 04:29 Last Admin: 12/16/19 00:43 Dose: 12.5 mls/hr Documented by: Levetiracetam 1,000 mg/ Sodium (Chloride) 110 mls @ 400 mls/hr IV ONETIME ONE Stop: 12/15/19 23:44 Last Admin: 12/15/19 23:56 Dose: 400 mls/hr Documented by: Lorazepam (Ativan) 1 mg IVPUSH ONETIME ONE Stop: 12/15/19 21:20 Last Admin: 12/15/19 22:28 Dose: Not Given Documented by: Lorazepam (Ativan) 2 mg IVPUSH ONETIME ONE Stop: 12/15/19 22:28 Last Admin: 12/15/19 21:19 Dose: 2 mg Documented by: Metoclopramide HCl (Reglan) 10 mg IVPUSH ONETIME ONE Stop: 12/15/19 21:20 Last Admin: 12/15/19 21:26 Dose: 10 mg Documented by: Pantoprazole Sodium (Protonix Iv) 40 mg IVPUSH ONETIME ONE Stop: 12/15/19 23:08 Last Admin: 12/15/19 23:28 Dose: 40 mg Documented by: Potassium Chloride (Klor-Con M20) 40 meq PO ONETIME ONE Stop: 12/15/19 22:32 Last Admin: 12/15/19 22:44 Dose: 40 meq Documented by: - Exam General: Alert, Oriented HEENT: Pupils Equal, Mucous Membr. Moist/[place] Neck: Supple Lungs: Clear to Auscultation, Normal Respiratory Effort Cardiovascular: Regular Rate, Regular Rhythm GI/Abdominal Exam: Normal Bowel Sounds, Soft, Non-Tender, No Organomegaly, No Distention Extremities: Normal Inspection, Normal Range of Motion, Non-Tender, No Pedal Edema, Normal Capillary Refill Skin: Warm, Dry, Intact Neurological: No New Focal Deficit Psy/Mental Status: Alert, Normal Affect, Normal Mood Sepsis Event Note - Evaluation Sepsis Screening Result: No Definite Risk - Focused Exam Vital Signs: Vital Signs Temp Pulse Resp BP BP Pulse Ox 12/16/19 12:01 16 142/113 H 12/16/19 12:00 97 F 12 142/113 H 98 12/16/19 11:58 11 L 154/118 H 12/16/19 11:57 9 L 12/16/19 11:00 15 97 12/16/19 10:00 14 99 12/16/19 09:00 17 100 12/16/19 08:38 9 L 138/99 H 99 12/16/19 08:37 13 100 12/16/19 08:00 97.6 F 16 138/99 H 96 12/16/19 07:00 16 99 12/16/19 06:00 15 100 12/16/19 05:00 13 98 12/16/19 04:01 15 99 12/16/19 04:00 97.9 F 78 15 125/93 H 97 12/16/19 03:59 15 99 12/16/19 03:00 14 98 12/16/19 02:00 14 97 - Problem List & Annotations (1) Hypokalemia SNOMED Code(s): 19190774 Code(s): E87.6 - HYPOKALEMIA Status: Acute Current Visit: Yes (2) Hypomagnesemia SNOMED Code(s): 814704181 Code(s): E83.42 - HYPOMAGNESEMIA Status: Acute Current Visit: Yes (3) Alcohol withdrawal seizure SNOMED Code(s): 098105708 Code(s): F10.239 - ALCOHOL DEPENDENCE WITH WITHDRAWAL, UNSPECIFIED; R56.9 - UNSPECIFIED CONVULSIONS Status: Acute Current Visit: Yes (4) Alcohol withdrawal syndrome SNOMED Code(s): 785834684 Code(s): F10.239 - ALCOHOL DEPENDENCE WITH WITHDRAWAL, UNSPECIFIED Status: Acute Current Visit: Yes - Problem List Review Problem List Initiated/Reviewed/Updated: Yes - My Orders Last 24 Hours: My Active Orders 12/15/19 23:00 Oxygen Therapy [RC] .PRN Up With Assistance [RC] ASDIRECTED VTE/DVT Education [RC] Vital Signs [RC] Q4H Consult to Case Management/Director Security Risk Management [CONS] Routine LORazepam [Ativan] 1 - 3 mg IV Q30M PRN Ondansetron [Zofran] 4 mg IV Q4H PRN Resuscitation Status Routine 12/15/19 23:43 CIWAA Assessment [RC] Q4H 12/16/19 00:30 D5 1/2 NS w/ 20 mEq/L KCl 1,000 ml IV ASDIRECTED 12/16/19 04:00 chlordiazePOXIDE [Librium] 50 mg PO Q4H 12/16/19 06:00 Pantoprazole [ProTONIX] 40 mg PO ACBREAKFAST 12/16/19 09:00 Folic Acid 1 mg PO DAILY Thiamine [Vitamin B-1] 100 mg IVPUSH DAILY 12/16/19 10:15 levETIRAcetam [Keppra] 500 mg PO BID 12/16/19 Lunch Regular Diet [DIET] 12/16/19 12:00 Nicotine [Habitrol] 21 mg TRDERM Q24H 12/17/19 02:00 chlordiazePOXIDE [Librium] 50 mg PO Q6H 12/17/19 12:00 Remove Patch 1 ea TRDERM Q24H 12/18/19 00:00 chlordiazePOXIDE [Librium] 25 mg PO Q4H 12/19/19 02:00 chlordiazePOXIDE [Librium] 25 mg PO Q6H - Assessment Assessment:: Assessment 12/15/2019day of admission * Alcohol withdrawal syndrome with history of alcohol withdrawal seizures * Patient develops seizures with just lowering of his alcohol intake increasing his risk for further seizures * 5-minute seizure prior to presentation to the emergency department * Drinks 750 mL of vodka and several beers daily * Thiamine 100 mg given IV in the emergency department * Keppra 1 g IV given in emergency department * Hypokalemia and hypomagnesemia * Potassium 3.0 * Magnesium 1.3 * Potassium 40 mEq given in the emergency department * Magnesium 6 g started in emergency department * Likely secondary to poor oral intake * Elevated anion gap * Anion gap 18 * Likely secondary to hypovolemia and alcoholism * Fluid bolus given in the emergency department 12/16/2019 * Alcohol withdrawal syndrome with history of alcoholic withdrawal seizures * Patient is significantly better this morning. * On Librium protocol * No PRN Ativan needed * Keppra 500 mg twice daily * Hypokalemia and hypomagnesemia - resolved * potassium 3.7, magnesium 2.7 * Elevated anion gap -resolved * 11.7 - Plan Plan:: Plan * Admit to ICU for close monitoring secondary to history of withdrawal seizures * Seizure precautions * Continue Librium protocol * Follow CIWAA scores * Ativan for elevated CIWA scores PRN * Continue Keppra 500 mg twice daily * Recheck electrolytes and renal function in the morning * Continue thiamine and start folic acid * Stop D5 normal saline with 20 mEq of potassium per liter or rehydration * Regular diet as tolerated * Case management and hospice social worker consult * CODE STATUS full code * VTE prophylaxis: Not indicated * Length of stay 2 to 3 days.
[2019-12-16] MEDS ORDERED: hydrALAZINE 20 MG/ML SDV IVPUSH ONE (14:20)
--- NOTE | 2019-12-16 16:56 | PCM.DCSUM1 ---
Discharge Summary - Hospital Course HPI Initial Comments: 34-year-old male presents emergency department with chief complaint of seizure. Patient has a history of alcoholism and since september has had multiple seizures when he decreases his alcohol intake. He recently moved from [place] where he was homeless to be closer to his children and their mother. Patient has been drinking approximately 7 or 50 mL of vodka daily plus as much beer as he can get his hands on. Yesterday morning he did have 1 shot of vodka and a 24 ounce beer and then attempt to decrease his intake. Patient subsequently had a seizure that lasted for approximately 5 minutes and EMS was called. He was postictal for approximately 10 minutes but no loss of bowel or bladder control. In the emergency department patient had a CT scan of the head which showed nothing acute. He was found to have some hyponatremia with potassium of 3.0 and hypomagnesemia magnesium 1.3. Anion gap was 18. Blood alcohol was 0.01 g% and his urine drug screen was negative. He was given a total of 3 mg of Ativan and Librium 50 mg in the emergency department. Started on potassium chloride 40 mEq and Protonix. Because of his recurrent history of seizures we loaded him with 1 g of Keppra in the emergency department and then transferred him to the ICU. Assessment * Alcohol withdrawal syndrome with history of alcohol withdrawal seizures * Patient develops seizures with just lowering of his alcohol intake increasing his risk for further seizures * 5-minute seizure prior to presentation to the emergency department * Drinks 750 mL of vodka and several beers daily * Thiamine 100 mg given IV in the emergency department * Keppra 1 g IV given in emergency department * Hypokalemia and hypomagnesemia * Potassium 3.0 * Magnesium 1.3 * Potassium 40 mEq given in the emergency department * Magnesium 6 g started in emergency department * Likely secondary to poor oral intake * Elevated anion gap * Anion gap 18 * Likely secondary to hypovolemia and alcoholism * Fluid bolus given in the emergency department Plan * Admit to ICU for close monitoring secondary to history of withdrawal seizures * Seizure precautions * Librium protocol * Follow CIWAA scores * Ativan for elevated CIWA scores PRN * Continue Keppra 500 mg twice daily * Follow electrolytes and renal function * Continue thiamine and start folic acid * D5 normal saline with 20 mEq of potassium per liter or rehydration * Regular diet as tolerated * Case management and social and political studies professor consult * CODE STATUS full code * VTE prophylaxis: Not indicated * Length of stay 2 to 3 days. Diagnosis: Stroke: No - Discharge Data Discharge Date: 12/16/19 Discharge Disposition: Against Medical Advice 07 Condition: Stable - Referral to Home Health Primary Care Physician: PCP None - Discharge Diagnosis/Problem(s) (1) Hypokalemia SNOMED Code(s): 36476168 ICD Code: E87.6 - HYPOKALEMIA Status: Acute Current Visit: Yes (2) Hypomagnesemia SNOMED Code(s): 218408866 ICD Code: E83.42 - HYPOMAGNESEMIA Status: Acute Current Visit: Yes (3) Alcohol withdrawal seizure SNOMED Code(s): 530227302 ICD Code: F10.239 - ALCOHOL DEPENDENCE WITH WITHDRAWAL, UNSPECIFIED; R56.9 - UNSPECIFIED CONVULSIONS Status: Acute Current Visit: Yes (4) Alcohol withdrawal syndrome SNOMED Code(s): 646662356 ICD Code: F10.239 - ALCOHOL DEPENDENCE WITH WITHDRAWAL, UNSPECIFIED Status: Acute Current Visit: Yes - Patient Summary/Data Consults: Consultations 12/15/19 23:00 Consult to Case Management/Personnel Recruiter [CONS] Routine Hospital Course: Patient did well overnight on Librium. CIWAA scores were less than 8. This afternoon patient decided he wanted to go home and his ex-, Miriam Goddard, was here and willing to take him home. Patient was fully capable of making his own decisions. I counseled him that he has a history of alcohol withdrawal seizure and he would likely have more seizures if he went home and did not have appropriate care. I discussed with his ex- use of Keppra and Librium for seizure prophylaxis and alcohol withdrawal. He was given Keppra 500 mg twice daily 60 tablets and Librium 25 mg every 4 hours 6 tablets. These were sent to [facility] pharmacy. Patient ex- understood the risk of continued alcohol withdrawal seizure and even from alcohol withdrawal. - Patient Instructions Diet: Usual Diet as Tolerated, No Alcoholic Beverages Activity: As Tolerated Notify Provider of: Nausea and/or Vomiting Other/Special Instructions: Follow-up with primary care provider this week. Do not drink alcohol. If you experience worsening withdrawal symptoms return to the emergency room. - Discharge Plan *PRESCRIPTION DRUG MONITORING PROGRAM REVIEWED*: No *COPY OF PRESCRIPTION DRUG MONITORING REPORT IN PATIENT PILI: No Prescriptions/Med Rec: Folic Acid 1 mg PO DAILY #30 tablet Nicotine [Habitrol] 21 mg TRDERM Q24H #30 patch levETIRAcetam [Keppra] 500 mg PO BID #60 tablet chlordiazePOXIDE [Librium] 25 mg PO Q4H #6 cap Thiamine [Vitamin B-1] 100 mg PO BEDTIME #30 tab Home Medications: Home Meds Folic Acid 1 mg PO DAILY #30 tablet 12/16/19 [Rx] Nicotine [Habitrol] 21 mg TRDERM Q24H #30 patch 12/16/19 [Rx] Thiamine [Vitamin B-1] 100 mg PO BEDTIME #30 tab 12/16/19 [Rx] chlordiazePOXIDE [Librium] 25 mg PO Q4H #6 cap 12/16/19 [Rx] levETIRAcetam [Keppra] 500 mg PO BID #60 tablet 12/16/19 [Rx] Oxygen Therapy Mode: Room Air Patient Handouts: Alcohol Withdrawal Syndrome, Finding Treatment for Addiction, Steps to Quit Smoking Referrals: PCP,None [Primary Care Provider] - - Discharge Summary/Plan Comment DC Time >30 min.: Yes Discharge Summary/Plan Comment: Leaving AGAINST MEDICAL ADVICE. I counseled the patient extensively about risk of seizure, severe alcohol withdrawal, and even . - Patient Data Vitals - Most Recent: Last Vital Signs Temp 97 F 12/16/19 12:00 Pulse 78 12/16/19 04:00 Resp 15 12/16/19 14:08 BP 164/115 H 12/16/19 14:20 Pulse Ox 99 12/16/19 14:08 Weight - Most Recent: 88.451 kg I&O - Last 24 hours: Intake & Output 12/16/19 12/16/19 12/16/19 06:59 14:59 22:59 Intake Total 240 240 Output Total 900 Balance -660 240 Lab Results - Last 24 hrs: Laboratory Results - last 24 hr 12/15/19 12/15/19 12/15/19 Range/Units 20:23 20:23 22:44 WBC 8.60 (4.23-9.07) K/mm3 RBC 4.03 L (4.63-6.08) M/mm3 Hgb 13.5 L (13.7-17.5) gm/dl Hct 40.4 (40.1-51.0) % MCV 100.2 H (79.0-92.2) fl MCH 33.5 H (25.7-32.2) pg MCHC 33.4 (32.2-35.5) g/dl RDW Std Deviation 48.4 H (35.1-43.9) fL Plt Count 210 (163-337) K/mm3 MPV 10.6 (9.4-12.3) fl Neut % (Auto) 49.3 (34.0-67.9) % Lymph % (Auto) 32.9 (21.8-53.1) % Rush % (Auto) 16.4 H (5.3-12.2) % Eos % (Auto) 1.0 (0.8-7.0) Baso % (Auto) 0.2 (0.1-1.2) % Neut # (Auto) 4.23 (1.78-5.38) K/mm3 Lymph # (Auto) 2.83 (1.32-3.57) K/mm3 Rush # (Auto) 1.41 H (0.30-0.82) K/mm3 Eos # (Auto) 0.09 (0.04-0.54) K/mm3 Baso # (Auto) 0.02 (0.01-0.08) K/mm3 Manual Slide Review Abnormal smear Sodium 136 (136-145) mEq/L Potassium 3.0 L (3.5-5.1) mEq/L Chloride 96 L (98-107) mEq/L Carbon Dioxide 25 (21-32) mEq/L Anion Gap 18.0 H (5-15) BUN 4 L (7-18) mg/dL Creatinine 0.9 (0.7-1.3) mg/dL Est Cr Clr Drug Dosing 135.73 mL/min Estimated GFR (MDRD) > 60 (>60) mL/min BUN/Creatinine Ratio 4.4 L (14-18) Glucose 65 L (74-106) mg/dL Calcium 9.7 (8.5-10.1) mg/dL Phosphorus (2.6-4.7) mg/dL Magnesium 1.3 L (1.8-2.4) mg/dl Total Bilirubin 0.4 (0.2-1.0) mg/dL AST 31 (15-37) U/L ALT 31 (16-63) U/L Alkaline Phosphatase 98 (46-116) U/L Creatine Kinase (39-308) U/L Total Protein 8.4 H (6.4-8.2) g/dl Albumin 3.8 (3.4-5.0) g/dl Globulin 4.6 gm/dL Albumin/Globulin Ratio 0.8 L (1-2) Vitamin B12 (193-986) pg/ml Folate (8.6-58.9) ng/mL Urine Color Yellow (Yellow) Urine Appearance Clear (Clear) Urine pH 7.5 (5.0-8.0) Ur Specific [place] 1.015 (1.005-1.030) Urine Protein Trace H (Negative) Urine Glucose (UA) Negative (Negative) Urine Ketones Negative (Negative) Urine Occult Blood Trace-intact H (Negative) Urine Nitrite Negative (Negative) Urine Bilirubin Negative (Negative) Urine Urobilinogen 1.0 (0.2-1.0) Ur Leukocyte Esterase Negative (Negative) Urine RBC 5-10 H (0-5) /hpf Urine WBC 0-5 (0-5) /hpf Ur Squamous Epith Cells 0-5 (0-5) /hpf Urine Bacteria Few (FEW) /hpf Urine Mucus Few (FEW) /hpf Urine Opiates Screen (OTBHXP=459) Ur Buprenorphine Scrn (CUTOFF=10) Ur Oxycodone Screen (UPR5ZS=950) Urine Methadone Screen (HKK8KU=239) Ur Propoxyphene Screen (DKGNLN=093) Ur Barbiturates Screen (LFNGZM=984) Ur Tricyclics Screen (LYXCXX=676) Ur Phencyclidine Scrn (CUTOFF=25) Ur Amphetamine Screen (GIKSGY=855) U Methamphetamines Scrn (JVNJFK=038) U Benzodiazepines Scrn (PAHVXA=139) U Cocaine Metab Screen (VAEYJP=172) U Marijuana (THC) Screen (CUTOFF=50) Ethyl Alcohol 0.01 (0.00) gm% COVID-19 (JEREMI) (NEGATIVE) 12/15/19 12/16/19 12/16/19 Range/Units 22:44 06:19 06:19 WBC 7.03 (4.23-9.07) K/mm3 RBC 3.76 L (4.63-6.08) M/mm3 Hgb 12.4 L (13.7-17.5) gm/dl Hct 37.5 L (40.1-51.0) % MCV 99.7 H (79.0-92.2) fl MCH 33.0 H (25.7-32.2) pg MCHC 33.1 (32.2-35.5) g/dl RDW Std Deviation 47.2 H (35.1-43.9) fL Plt Count 188 (163-337) K/mm3 MPV 10.0 (9.4-12.3) fl Neut % (Auto) 57.9 (34.0-67.9) % Lymph % (Auto) 24.8 (21.8-53.1) % Rush % (Auto) 14.9 H (5.3-12.2) % Eos % (Auto) 2.0 (0.8-7.0) Baso % (Auto) 0.3 (0.1-1.2) % Neut # (Auto) 4.07 (1.78-5.38) K/mm3 Lymph # (Auto) 1.74 (1.32-3.57) K/mm3 Rush # (Auto) 1.05 H (0.30-0.82) K/mm3 Eos # (Auto) 0.14 (0.04-0.54) K/mm3 Baso # (Auto) 0.02 (0.01-0.08) K/mm3 Manual Slide Review Sodium 138 (136-145) mEq/L Potassium 3.7 (3.5-5.1) mEq/L Chloride 102 (98-107) mEq/L Carbon Dioxide 28 (21-32) mEq/L Anion Gap 11.7 (5-15) BUN 4 L (7-18) mg/dL Creatinine 0.8 (0.7-1.3) mg/dL Est Cr Clr Drug Dosing 144.59 mL/min Estimated GFR (MDRD) > 60 (>60) mL/min BUN/Creatinine Ratio 5.0 L (14-18) Glucose 108 H (74-106) mg/dL Calcium 8.5 (8.5-10.1) mg/dL Phosphorus 2.8 (2.6-4.7) mg/dL Magnesium 2.7 H (1.8-2.4) mg/dl Total Bilirubin 0.5 (0.2-1.0) mg/dL AST 32 (15-37) U/L ALT 24 (16-63) U/L Alkaline Phosphatase 83 (46-116) U/L Creatine Kinase 107 (39-308) U/L Total Protein 7.2 (6.4-8.2) g/dl Albumin 3.3 L (3.4-5.0) g/dl Globulin 3.9 gm/dL Albumin/Globulin Ratio 0.9 L (1-2) Vitamin B12 (193-986) pg/ml Folate (8.6-58.9) ng/mL Urine Color (Yellow) Urine Appearance (Clear) Urine pH (5.0-8.0) Ur Specific [place] (1.005-1.030) Urine Protein (Negative) Urine Glucose (UA) (Negative) Urine Ketones (Negative) Urine Occult Blood (Negative) Urine Nitrite (Negative) Urine Bilirubin (Negative) Urine Urobilinogen (0.2-1.0) Ur Leukocyte Esterase (Negative) Urine RBC (0-5) /hpf Urine WBC (0-5) /hpf Ur Squamous Epith Cells (0-5) /hpf Urine Bacteria (FEW) /hpf Urine Mucus (FEW) /hpf Urine Opiates Screen Negative (GFANFB=786) Ur Buprenorphine Scrn Negative (CUTOFF=10) Ur Oxycodone Screen Negative (ZCY4ID=641) Urine Methadone Screen Negative (ITZ2VR=430) Ur Propoxyphene Screen Negative (SKBIXI=341) Ur Barbiturates Screen Negative (KLQFRI=952) Ur Tricyclics Screen Negative (NZDKAI=551) Ur Phencyclidine Scrn Negative (CUTOFF=25) Ur Amphetamine Screen Negative (PENLMY=022) U Methamphetamines Scrn Negative (TCQJMU=429) U Benzodiazepines Scrn Negative (GJNVVR=647) U Cocaine Metab Screen Negative (PBUNYG=719) U Marijuana (THC) Screen Negative (CUTOFF=50) Ethyl Alcohol (0.00) gm% COVID-19 (JEREMI) (NEGATIVE) 12/16/19 12/16/19 Range/Units 06:19 23:58 WBC (4.23-9.07) K/mm3 RBC (4.63-6.08) M/mm3 Hgb (13.7-17.5) gm/dl Hct (40.1-51.0) % MCV (79.0-92.2) fl MCH (25.7-32.2) pg MCHC (32.2-35.5) g/dl RDW Std Deviation (35.1-43.9) fL Plt Count (163-337) K/mm3 MPV (9.4-12.3) fl Neut % (Auto) (34.0-67.9) % Lymph % (Auto) (21.8-53.1) % Rush % (Auto) (5.3-12.2) % Eos % (Auto) (0.8-7.0) Baso % (Auto) (0.1-1.2) % Neut # (Auto) (1.78-5.38) K/mm3 Lymph # (Auto) (1.32-3.57) K/mm3 [place] # (Auto) (0.30-0.82) K/mm3 Eos # (Auto) (0.04-0.54) K/mm3 Baso # (Auto) (0.01-0.08) K/mm3 Manual Slide Review Sodium (136-145) mEq/L Potassium (3.5-5.1) mEq/L Chloride (98-107) mEq/L Carbon Dioxide (21-32) mEq/L Anion Gap (5-15) BUN (7-18) mg/dL Creatinine (0.7-1.3) mg/dL Est Cr Clr Drug Dosing mL/min Estimated GFR (MDRD) (>60) mL/min BUN/Creatinine Ratio (14-18) Glucose (74-106) mg/dL Calcium (8.5-10.1) mg/dL Phosphorus (2.6-4.7) mg/dL Magnesium (1.8-2.4) mg/dl Total Bilirubin (0.2-1.0) mg/dL AST (15-37) U/L ALT (16-63) U/L Alkaline Phosphatase (46-116) U/L Creatine Kinase (39-308) U/L Total Protein (6.4-8.2) g/dl Albumin (3.4-5.0) g/dl Globulin gm/dL Albumin/Globulin Ratio (1-2) Vitamin B12 941 (193-986) pg/ml Folate 9.7 (8.6-58.9) ng/mL Urine Color (Yellow) Urine Appearance (Clear) Urine pH (5.0-8.0) Ur Specific [place] (1.005-1.030) Urine Protein (Negative) Urine Glucose (UA) (Negative) Urine Ketones (Negative) Urine Occult Blood (Negative) Urine Nitrite (Negative) Urine Bilirubin (Negative) Urine Urobilinogen (0.2-1.0) Ur Leukocyte Esterase (Negative) Urine RBC (0-5) /hpf Urine WBC (0-5) /hpf Ur Squamous Epith Cells (0-5) /hpf Urine Bacteria (FEW) /hpf Urine Mucus (FEW) /hpf Urine Opiates Screen (IGGADR=336) Ur Buprenorphine Scrn (CUTOFF=10) Ur Oxycodone Screen (RGX2QI=792) Urine Methadone Screen (XBI6WL=389) Ur Propoxyphene Screen (SIBIWQ=846) Ur Barbiturates Screen (FLTWMQ=013) Ur Tricyclics Screen (EPVHHY=545) Ur Phencyclidine Scrn (CUTOFF=25) Ur Amphetamine Screen (YOJESN=944) U Methamphetamines Scrn (DIQTDJ=187) U Benzodiazepines Scrn (KFCKIF=274) U Cocaine Metab Screen (VAWANW=816) U Marijuana (THC) Screen (CUTOFF=50) Ethyl Alcohol (0.00) gm% COVID-19 (JEREMI) Negative (NEGATIVE) Med Orders - Current: Current Medications Chlordiazepoxide HCl (Librium) 50 mg PO Q4H [facility] Stop: 12/16/19 20:01 Last Admin: 12/16/19 15:48 Dose: 50 mg Documented by: Chlordiazepoxide HCl (Librium) 50 mg PO Q6H [facility] Stop: 12/17/19 20:01 Chlordiazepoxide HCl (Librium) 25 mg PO Q4H [facility] Stop: 12/18/19 20:01 Chlordiazepoxide HCl (Librium) 25 mg PO Q6H [facility] Stop: 12/19/19 20:01 Folic Acid (Folic Acid) 1 mg PO DAILY [facility] Last Admin: 12/16/19 08:30 Dose: 1 mg Documented by: Levetiracetam (Keppra) 500 mg PO BID [facility] Last Admin: 12/16/19 11:02 Dose: 500 mg Documented by: Lorazepam (Ativan) 1 - 3 mg IV Q30M PRN; Protocol PRN Reason: Nausea/Vomiting Miscellaneous Information (Remove Patch) 1 ea TRDERM Q24H [facility] Nicotine (Habitrol) 21 mg TRDERM Q24H [facility] Last Admin: 12/16/19 11:17 Dose: 21 mg Documented by: Ondansetron HCl (Zofran) 4 mg IV Q4H PRN PRN Reason: Nausea/Vomiting Pantoprazole Sodium (Protonix) 40 mg PO ACBREAKFAST [facility] Last Admin: 12/16/19 05:23 Dose: 40 mg Documented by: Sodium Chloride (Saline Flush) 10 ml FLUSH ASDIRECTED PRN PRN Reason: Keep Vein Open Last Admin: 12/15/19 21:26 Dose: 10 ml Documented by: Thiamine HCl (Vitamin B-1) 100 mg IVPUSH DAILY [facility] Last Admin: 12/16/19 08:30 Dose: 100 mg Documented by: Discontinued Medications Chlordiazepoxide HCl (Librium) 50 mg PO ONETIME ONE Stop: 12/15/19 22:50 Last Admin: 12/15/19 23:26 Dose: 50 mg Documented by: Chlordiazepoxide HCl (Librium) 0 mg PO Q1H PRN; Protocol PRN Reason: Withdrawal Symptoms Hydralazine HCl (Apresoline) 10 mg IVPUSH ONETIME ONE Stop: 12/16/19 14:21 Last Admin: 12/16/19 14:29 Dose: 10 mg Documented by: Sodium Chloride (Normal Saline) 1,000 mls @ 999 mls/hr IV ONETIME ONE Stop: 12/15/19 22:19 Last Admin: 12/15/19 21:25 Dose: 999 mls/hr Documented by: Magnesium Sulfate 2 gm/ Premix 50 mls @ 25 mls/hr IV ONETIME ONE Stop: 12/16/19 00:18 Last Admin: 12/15/19 22:26 Dose: 25 mls/hr Documented by: Thiamine HCl 100 mg/ Sodium (Chloride) 101 mls @ 202 mls/hr IV ONETIME ONE Stop: 12/15/19 22:44 Last Admin: 12/15/19 23:28 Dose: 202 mls/hr Documented by: Magnesium Sulfate 4 gm/ Premix 50 mls @ 12.5 mls/hr IV ONETIME ONE Stop: 12/16/19 04:29 Last Admin: 12/16/19 00:43 Dose: 12.5 mls/hr Documented by: Levetiracetam 1,000 mg/ Sodium (Chloride) 110 mls @ 400 mls/hr IV ONETIME ONE Stop: 12/15/19 23:44 Last Admin: 12/15/19 23:56 Dose: 400 mls/hr Documented by: Potassium Chloride/Dextrose/Sod Cl (D5 1/2 Ns W/ 20 Meq/L Kcl) 1,000 mls @ 125 mls/hr IV ASDIRECTED [facility] Last Admin: 12/16/19 08:30 Dose: 125 mls/hr Documented by: Lorazepam (Ativan) 1 mg IVPUSH ONETIME ONE Stop: 12/15/19 21:20 Last Admin: 12/15/19 22:28 Dose: Not Given Documented by: Lorazepam (Ativan) 2 mg IVPUSH ONETIME ONE Stop: 12/15/19 22:28 Last Admin: 12/15/19 21:19 Dose: 2 mg Documented by: Metoclopramide HCl (Reglan) 10 mg IVPUSH ONETIME ONE Stop: 12/15/19 21:20 Last Admin: 12/15/19 21:26 Dose: 10 mg Documented by: Pantoprazole Sodium (Protonix Iv) 40 mg IVPUSH ONETIME ONE Stop: 12/15/19 23:08 Last Admin: 12/15/19 23:28 Dose: 40 mg Documented by: Potassium Chloride (Klor-Con M20) 40 meq PO ONETIME ONE Stop: 12/15/19 22:32 Last Admin: 12/15/19 22:44 Dose: 40 meq Documented by:
[2019-12-17] MEDS ORDERED: chlordiazePOXIDE 25 MG Cap PO SCH (02:00)
[2019-12-18] MEDS ORDERED: chlordiazePOXIDE 25 MG Cap PO SCH
[2019-12-19] MEDS ORDERED: chlordiazePOXIDE 25 MG Cap PO SCH (02:00)
== END 2019-12-16 17:35 | disposition left against medical advice (07) | DRG 894 ==
LOC: JD.ED 20:16 → EDBD 20:16 → JD.ICU 23:51
PROVIDERS: ADMIT Family Medicine; ATTEND Family Medicine
DX: F10.239 Alcohol dependence with withdrawal, unspecified (principal); E87.1 Hypo-osmolality and hyponatremia; R56.9 Unspecified convulsions; E87.6 Hypokalemia; E83.42 Hypomagnesemia; E86.1 Hypovolemia; Z20.828 Contact with and (suspected) exposure to other viral communicable diseases; Y90.0 Blood alcohol level of less than 20 mg/100 ml
CPT/HCPCS: 36415; 70450; 70450-26; 80053; 80306; 80307; 81001; 82550; 82607; 82746; 83735; 84100; 85025; 96365; 96367; 96375; 99283; 99285-25; A9270-GY; C9113; J0360; J1953; J2060; J2765; J3411; J3475; J3480; J7030; J7050; U0002

== ENCOUNTER 2020-05-24 16:59 | Emergency (ER) | payer MEDICAID ==
--- NOTE | 2020-05-24 17:36 | EDM.PDOC ---
ED HPI GENERAL MEDICAL PROBLEM - General Source of Information: Reports: Patient, Other (Mother of patient's child) History Limitations: Reports: Intoxication <Millie Gibbs - Last Filed: 05/24/20 17:30> <Edmund Manning - Last Filed: 05/24/20 18:23> - General Chief Complaint: Drug or Alcohol Abuse Stated Complaint: SEIZURE/BLACKED OUT Time Seen by Provider: 05/24/20 17:17 - History of Present Illness INITIAL COMMENTS - FREE TEXT/NARRATIVE: Vamshi is a 35 year old male presenting to the ED with complains of alcohol withdrawal seizure. He states it occurred around 1645 when he was smoking a cigarette and talking to friends. His child's mother is present in the ED and states his friend caught him as he fell and did not have head trauma. He states his last drink was around 1530 and his drink of choice is vodka. He admits to drinking "one pint a day" but the child's mother says his drinks significantly more. When asked how he feels he describes it as "whizzy", not fully focused and out of it. His only complaint is that he is shaking, but I do not see this. 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 The child's mother states the last seizure he had was in November of 2019. He states he has been sober for six months prior to this episode. He denies nausea, vomiting, hallucinations, delirium like symptoms. (Millie Gibbs) - Related Data Allergies Allergy/AdvReac Type Severity Reaction Status Date / Time No Known Allergies Allergy Verified 05/24/20 17:18 Home Meds: Home Meds levETIRAcetam [Keppra] 500 mg PO BID #60 tab 05/24/20 [Rx] Past Medical History HEENT History: Reports: None Cardiovascular History: Reports: None Respiratory History: Reports: None Gastrointestinal History: Reports: None Genitourinary History: Reports: None Musculoskeletal History: Reports: None Neurological History: Reports: Seizure Psychiatric History: Reports: Addiction Endocrine/Metabolic History: Reports: None Hematologic History: Reports: None Immunologic History: Reports: None Oncologic (Cancer) History: Reports: None Dermatologic History: Reports: None - Infectious Disease History Infectious Disease History: Reports: None Other Infectious Disease History: pt unsure if he might have hepatitis <Millie Gibbs - Last Filed: 05/24/20 17:30> Social & Family History - Family History Family Medical History: Unobtainable - Tobacco Use Tobacco Use Status *Q: Current Every Day Tobacco User Years of Tobacco use: 15 Packs/Tins Daily: 1 - Caffeine Use Caffeine Use: Reports: Coffee, Energy Drinks, Soda, Tea - Recreational Drug Use Recreational Drug Use: Yes Recreational Drug Use Frequency: Monthly <Millie Gibbs - Last Filed: 05/24/20 17:30> ED ROS GENERAL - Review of Systems Review Of Systems: Comprehensive ROS is negative, except as noted in HPI. <Millie Gibbs - Last Filed: 05/24/20 17:30> - Physical Exam Exam: See Below General Appearance: Alert, WD/WN, No Apparent Distress, Other (Intoxicated ) Neck: Normal Inspection, Supple, Non-Tender, Full Range of Motion Respiratory/Chest: No Respiratory Distress, Lungs Clear, Normal Breath Sounds, No Accessory Muscle Use, Chest Non-Tender Cardiovascular: Normal Peripheral Pulses, Regular Rate, Rhythm, No Edema, No Gallop, No JVD, No Murmur, No Rub GI/Abdominal: Normal Bowel Sounds, Soft, Non-Tender, No Organomegaly, No Distention, No Abnormal Bruit, No Mass Neuro Exam (Abbreviated): Alert, Oriented, CN II-XII Intact, Slow to Respond (Patient is clearly intoxicated and has a hard time communicating and is difficult to understand. ) Back Exam: Normal Inspection, Full Range of Motion, NT Extremities: Normal Inspection, Normal Range of Motion, Non-Tender, No Pedal Edema, Normal Capillary Refill Psychiatric: Normal Affect, Normal Mood Skin Exam: Warm, Dry, Intact, Normal Color, No Rash <Millie Gibbs - Last Filed: 05/24/20 17:30> Course <Millie Gibbs - Last Filed: 05/24/20 17:30> <Edmund Manning - Last Filed: 05/24/20 18:23> - Vital Signs Last Recorded V/S: Last Vital Signs Temp 97.6 F 05/24/20 17:14 Pulse 72 05/24/20 17:14 Resp 18 05/24/20 17:14 BP 129/94 H 05/24/20 17:14 Pulse Ox 98 05/24/20 17:14 - Orders/Labs/Meds Orders: Active Orders 24 hr Category Date Time Status Sodium Chloride 0.9% [Normal Saline] 1,000 ml Med 05/24/20 17:38 Active IV ONETIME Medication Orders Sodium Chloride (Normal Saline) 1,000 mls @ 999 mls/hr IV ONETIME ONE Stop: 05/24/20 18:38 Last Admin: 05/24/20 17:55 Dose: 999 mls/hr Documented by: JAMESON Labs: Laboratory Tests 05/24/20 05/24/20 Range/Units 17:39 17:39 WBC 8.04 (4.23-9.07) K/mm3 RBC 5.49 (4.63-6.08) M/mm3 Hgb 16.4 D (13.7-17.5) gm/dl Hct 49.4 (40.1-51.0) % MCV 90.0 D (79.0-92.2) fl MCH 29.9 (25.7-32.2) pg MCHC 33.2 (32.2-35.5) g/dl RDW Std Deviation 46.2 H (35.1-43.9) fL Plt Count 328 D (163-337) K/mm3 MPV 9.2 L (9.4-12.3) fl Neut % (Auto) 58.6 (34.0-67.9) % Lymph % (Auto) 36.9 (21.8-53.1) % [place] % (Auto) 4.0 L (5.3-12.2) % Eos % (Auto) 0.2 L (0.8-7.0) Baso % (Auto) 0.2 (0.1-1.2) % Neut # (Auto) 4.70 (1.78-5.38) K/mm3 Lymph # (Auto) 2.97 (1.32-3.57) K/mm3 [place] # (Auto) 0.32 (0.30-0.82) K/mm3 Eos # (Auto) 0.02 L (0.04-0.54) K/mm3 Baso # (Auto) 0.02 (0.01-0.08) K/mm3 Sodium 148 H D (136-145) mEq/L Potassium 3.7 (3.5-5.1) mEq/L Chloride 107 (98-107) mEq/L Carbon Dioxide 29 (21-32) mEq/L Anion Gap 15.7 H (5-15) BUN 7 (7-18) mg/dL Creatinine 1.0 (0.7-1.3) mg/dL Est Cr Clr Drug Dosing 116.86 mL/min Estimated GFR (MDRD) > 60 (>60) mL/min BUN/Creatinine Ratio 7.0 L (14-18) Glucose 87 (74-106) mg/dL Calcium 8.7 (8.5-10.1) mg/dL Magnesium 2.0 (1.8-2.4) mg/dl Total Bilirubin 0.4 (0.2-1.0) mg/dL AST 29 (15-37) U/L ALT 27 (16-63) U/L Alkaline Phosphatase 93 (46-116) U/L Total Protein 7.5 (6.4-8.2) g/dl Albumin 3.9 (3.4-5.0) g/dl Globulin 3.6 gm/dL Albumin/Globulin Ratio 1.1 (1-2) Lipase 63 L (73-393) U/L Ethyl Alcohol 0.35 (0.00) gm% Meds: Medications Generic Name Dose Route Start Last Admin Trade Name Freq PRN Reason Stop Dose Admin Sodium Chloride 1,000 mls @ 999 mls/hr 05/24/20 17:38 05/24/20 17:55 Normal Saline IV 05/24/20 18:38 999 mls/hr ONETIME ONE Administration Discontinued Medications Generic Name Dose Route Start Last Admin Trade Name Freq PRN Reason Stop Dose Admin Thiamine HCl 100 mg/ Sodium 101 mls @ 202 mls/hr 05/24/20 17:39 05/24/20 17:56 Chloride IV 05/24/20 17:40 202 mls/hr ONETIME ONE Administration Levetiracetam 1,000 mg/ Sodium 110 mls @ 400 mls/hr 05/24/20 17:56 Chloride IV 05/24/20 18:10 ONETIME ONE - Re-Assessments/Exams Free Text/Narrative Re-Assessment/Exam: 05/24/20 17:47 Vamshi is a 35 year old male presenting to the ED with alcohol withdrawal seizure occurring roughly one hour ago. He states he has a history of alcohol withdrawal seizures and the last one happened in November of 2019. His only complaint today is he is shaking and not fully focused. I have ordered routine labs, thiamine, lipase, magnesium and ETOH level. (Millie Gibbs) 05/24/20 18:17 I examined the patient myself and I agree with Millie's assessment and plan. I ordered an IV NS bolus, labs, thiamine and keppra 1,000mg IV. His CBC looks good. His Na is elevated at 148. His lipase is low. His magnesium is normal at 2. His ETOH is elevated at 0.35. I feel the seizures are related to the drinking. He may benefit from keppra daily. I will get him on some keppra for at home. (Edmund Manning) Departure <Millie Gibbs - Last Filed: 05/24/20 17:30> - Departure Time of Disposition: 18:20 Condition: Good - Discharge Information *PRESCRIPTION DRUG MONITORING PROGRAM REVIEWED*: Not Applicable *COPY OF PRESCRIPTION DRUG MONITORING REPORT IN PATIENT PILI: Not Applicable <Edmund Manning - Last Filed: 05/24/20 18:23> - Departure Disposition: Home, Self-Care 01 Clinical Impression: Seizure Alcohol intoxication Qualifiers: Complication of substance-induced condition: uncomplicated Qualified Code(s): F10.920 - Alcohol use, unspecified with intoxication, uncomplicated - Discharge Information Prescriptions: levETIRAcetam [Keppra] 500 mg PO BID #60 tab Referrals: PCP,None [Primary Care Provider] - Deidre Phelan, KAYLEN [Nurse Practitioner] - 1 Week Forms: ED Department Discharge Additional Instructions: Try to stop drinking alcohol. If you need help stopping, contact [facility] [place] at for help. Take the keppra 500mg 2 times per day . Follow up with Deidre Phelan in our clinic within a week. Please return if you are worse. Sepsis Event Note (ED) - Evaluation Sepsis Screening Result: No Definite Risk <Millie Gibbs - Last Filed: 05/24/20 17:30> - Focused Exam Vital Signs: Vital Signs Temp Pulse Resp BP Pulse Ox 05/24/20 17:14 97.6 F 72 18 129/94 H 98
[2020-05-24] MEDS ORDERED: Sodium Chloride 0.9% 1,000 ML IV ONE (17:38)
[2020-05-24] MEDS ORDERED: Thiamine 100 MG in Sodium Chloride 0.9% 100 ML IV ONE (17:39)
[2020-05-24] MEDS ORDERED: levETIRAcetam 1,000 MG in Sodium Chloride 0.9% 100 ML IV ONE (17:56)
== END 2020-05-24 19:05 | disposition home or self-care (01) ==
LOC: JD.ED 16:59
DX: R56.9 Unspecified convulsions (principal); F10.120 Alcohol abuse with intoxication, uncomplicated; F17.210 Nicotine dependence, cigarettes, uncomplicated; Y90.8 Blood alcohol level of 240 mg/100 ml or more; Z79.899 Other long term (current) drug therapy
CPT/HCPCS: 36415; 80053; 80179; 83690; 83735; 85025; 96365; 96375; 99284; 99284-25; J1953; J3411; J7030

== ENCOUNTER 2022-12-19 12:54 | Emergency (ER) | payer SELFPAY ==
[2022-12-19] MEDS ORDERED: Lidocaine 1% 10 ML MDV INJECT ONE (13:10)
[2022-12-19] MEDS ORDERED: Diphtheria,Pertussis(Acell),Tetanus Vaccine 0.5 ML Syringe IM ONE (13:25)
== END 2022-12-19 14:07 | disposition home or self-care (01) ==
LOC: JD.ED 12:54
DX: S61.234A Puncture wound without foreign body of right ring finger without damage to nail, initial encounter (principal); Z23 Encounter for immunization; Y29.XXXA Contact with blunt object, undetermined intent, initial encounter
CPT/HCPCS: 90471; 90715; 99282; 99282-25; J3490